=== PATIENT | female | born 1965 | race Asian ===

== ENCOUNTER 2021-07-26 11:53 | Emergency (ER) | payer OTHER ==
[~2021-07-26] VITALS: Ht 160 cm; Wt 63.5 kg
[2021-07-26] MEDS ORDERED: AMOXICILLIN500 M1 PO (12:16)
[2021-07-26 12:20] VITALS: BP 116/73
== END 2021-07-26 12:20 | disposition home or self-care (01) ==
LOC: ER 11:53
DX: S09.21XA Traumatic rupture of right ear drum, initial encounter (principal); X58.XXXA Exposure to other specified factors, initial encounter; Y93.89 Activity, other specified; Y92.89 Other specified places as the place of occurrence of the external cause; Y99.8 Other external cause status